=== PATIENT | female | born 1980 | race Caucasian/White ===

== ENCOUNTER 2017-05-01 03:43 | Inpatient (IN) | payer OTHER ==
[2017-05-01] MEDS ORDERED: Glycerin ADULT SUPP PR PRN (07:10)
[2017-05-01] MEDS ORDERED: Acetaminophen TAB* 325 MG PO PRN (07:10)
[2017-05-01] MEDS: Ibuprofen TAB* 600 MG PO PRN ×2 (07:40→18:10)
[2017-05-01] MEDS: Dibucaine 1% 28.35 GM TUBE PR PRN (07:41)
[2017-05-01] MEDS: Witch Hazel PAD* JAR TOPICAL PRN (07:41)
[2017-05-01] MEDS ORDERED: Simethicone CHEW TAB* 80 MG PO SCH (08:30)
[2017-05-01] MEDS: Docusate CAP* 100 MG PO SCH ×2 (19:38→21:57)
[2017-05-02] MEDS: Ibuprofen TAB* 600 MG PO PRN ×4 (00:32→18:39)
[2017-05-02 06:57] LABS: Hematocrit 30 % (35-47); Hemoglobin 10.1 g/dl (12.0-16.0); Mean Corpuscular HGB Conc 34 g/dl (31-36); Mean Corpuscular Hemoglobin 32 pg (27-31); Mean Corpuscular Volume 93 fL (80-97); Mean Platelet Volume 9 um3 (7.4-10.4); Red Blood Count 3.21 10^6/ul (4.0-5.4); Red Cell Distribution Width 14 % (10.5-15); White Blood Count 23.4 10^3/ul (3.5-10.8)
[2017-05-02 06:58] LABS: Comments Flag Yes
[2017-05-02 06:59] LABS: Add Diff/Slide Review? Slide Review Added
[2017-05-02] MEDS ORDERED: Ferrous Gluconate TAB* 324 MG TAB PO SCH (09:00)
[2017-05-02] MEDS ORDERED: Influenza VAC *QUAD* 2017-18* 0.5 ML SYRINGE IM ONE (09:00)
[2017-05-02] MEDS: Docusate CAP* 100 MG PO SCH ×3 (09:01→20:41)
[2017-05-02] MEDS: Witch Hazel PAD* JAR TOPICAL PRN (18:40)
[2017-05-02] MEDS: Dibucaine 1% 28.35 GM TUBE PR PRN (18:41)
[2017-05-02 19:56] VITALS: BP 129/76
[2017-05-03] MEDS: Ibuprofen TAB* 600 MG PO PRN ×2 (02:07→09:46)
[2017-05-03] MEDS: Witch Hazel PAD* JAR TOPICAL PRN (09:51)
[2017-05-03] MEDS: Dibucaine 1% 28.35 GM TUBE PR PRN (09:52)
== END 2017-05-03 13:56 | disposition home or self-care (01) | DRG 775 ==
LOC: MCHOBOUT 03:43 → MCHOB 04:11
PROVIDERS: ADMIT Midwife; ATTEND Midwife
PROC: 0KQM0ZZ Repair Perineum Muscle, Open Approach (ICD-10-PCS; principal; 2017-05-01)
PROC: 10E0XZZ Delivery of Products of Conception, External Approach (ICD-10-PCS; 2017-05-01)
PROC: 4A1HX4Z Monitoring of Products of Conception, Cardiac Electrical Activity, External Approach (ICD-10-PCS; 2017-05-01)
DX: O70.1 Second degree perineal laceration during delivery (principal); Z37.0 Single live birth; Z88.1 Allergy status to other antibiotic agents; Z3A.39 39 weeks gestation of pregnancy
CPT/HCPCS: 36415; 85025; 85060; 88307; A9270-GY

== ENCOUNTER 2020-11-09 12:06 | Inpatient (IN) ==
[2020-11-09 15:50] LABS: Urine Benzodiazepine Screen None Detected (None Detect); Urine Cannabinoids Screen None Detected (None Detect); Urine Opiates Screen None Detected (None Detect)
[2020-11-10] MEDS ORDERED: Oxytocin 10 UNITS/ML 1 ML VIAL IM ONE (09:57)
[2020-11-10] MEDS ORDERED: Witch Hazel PAD JAR TOPICAL PRN (12:42)
[2020-11-10] MEDS ORDERED: Dibucaine 1% OINT 28.35 GM TUBE PR PRN (12:42)
[2020-11-10] MEDS ORDERED: Lactated Ringers 1000 ml BAG 1,000 ML IV SCH (13:00)
[2020-11-10] MEDS ORDERED: Lidocaine 1% VIAL 10 MG/ML VIAL ONE (13:40)
[2020-11-11 07:23] VITALS: BP 125/75
[2020-11-11 07:31] LABS: Hematocrit 33 % (35-47); Hemoglobin 10.7 g/dL (12.0-16.0); Mean Corpuscular HGB Conc 33 g/dL (31-36); Mean Corpuscular Hemoglobin 30 pg (27-31); Mean Corpuscular Volume 92 fL (80-97); Mean Platelet Volume 8.7 fL (7.4-10.4); Platelet Count 232 10^3/uL (150-450); Red Blood Count 3.51 10^6 /uL (3.70-4.87); Red Cell Distribution Width 14 % (10-15)
[2020-11-11 09:14] LABS: ABS Basophils 0.1 10^3/ul (0-0.2); ABS Eosinophils 0.1 10^3/ul (0-0.6); ABS Lymphocytes 3.6 10^3/ul (1.0-4.8); ABS Monocytes 1.6 10^3/ul (0-0.8); ABS Neutrophils 17.6 10^3/ul (1.5-7.7); Eosinophil % 0.5 %; Lymphocyte % 15.8 %
== END 2020-11-11 17:20 | disposition home or self-care (01) | DRG 807 ==
LOC: MCHOBOUT 12:06 → MCHOB 12:52
PROVIDERS: ADMIT Midwife; ATTEND Midwife